=== PATIENT | female | born 1970 | race Caucasian/White ===

== ENCOUNTER 2021-03-27 10:39 | Day surgery (SDC) | payer OTHER, SELFPAY ==
--- NOTE | 2021-03-26 09:13 | HO.ANESPROP2 ---
HPI - Anesthesia Eval Consult details Narrative: 50yo F for Colonoscopy PMFSH Past Medical History Medical History Anxiety Breast cancer Seasonal allergies Surgical History Surgical History H/O mastectomy (~2019) Social History Social History Patient Tobacco Use Status: Former Tobacco user Use of substances other than those prescribed or required for medical reasons: No Advance Directives: No Advance Directives Information Provided: Yes Meds Allergies Allergy/AdvReac Type Severity Reaction Status Date / Time Seasonal Allergies Allergy Severe Itching Verified 03/27/21 10:45 Sulfa (Sulfonamide Allergy Severe Hives Verified 03/27/21 10:45 Antibiotics) trimethoprim Allergy Severe Hives Verified 03/27/21 10:45 Home Medications Medication Instructions Recorded Confirmed Last Taken Type sertraline 1 tab PO DAILY 03/26/21 03/26/21 Unknown History Exam Exam Date and Time: March 26, 2021 0913 Assessment and Plan Assessment Anesthesia Assessment: Chart Reviewed
[2021-03-27 10:46] VITALS: BP 150/88; PULSE 84; RESP 18; TEMP 36.7; O2SAT 99; BMI 27.4
[2021-03-27] MEDS: Lactated Ringers 1,000 ML 100 ML IVCONT (10:51)
--- NOTE | 2021-03-27 10:52 | MHC.SHP ---
Pre-Procedural Eval Section A Date of Service: 03/27/21 The patient is an INPATIENT: No Changes since office visit: No Cold of Flu in the past 2 weeks, No New Medical Problems, No Changes in Medication and No Patient answered all questions The History & Physical has been completed within 30 days and I have reviewed it.: Yes Section B Chief Complaint: screening Allergies: Allergies Allergy/AdvReac Type Severity Reaction Status Date / Time Seasonal Allergies Allergy Severe Itching Verified 03/27/21 10:45 Sulfa (Sulfonamide Allergy Severe Hives Verified 03/27/21 10:45 Antibiotics) trimethoprim Allergy Severe Hives Verified 03/27/21 10:45 Plan I have reviewed the history and physical and performed a pertinent physical examination on my patient. No changes have occurred unless specified.
--- NOTE | 2021-03-27 11:09 | HO.ANESPROP2 ---
[facility] Past Medical History Medical History Anxiety Breast cancer Seasonal allergies Surgical History Surgical History H/O mastectomy (~2019) Social History Social History Patient Tobacco Use Status: Former Tobacco user Use of substances other than those prescribed or required for medical reasons: No Advance Directives: No Advance Directives Information Provided: Yes Meds Allergies Allergy/AdvReac Type Severity Reaction Status Date / Time Seasonal Allergies Allergy Severe Itching Verified 03/27/21 10:45 Sulfa (Sulfonamide Allergy Severe Hives Verified 03/27/21 10:45 Antibiotics) trimethoprim Allergy Severe Hives Verified 03/27/21 10:45 Active Medications: Current Medications Generic Name Dose Route Start Last Admin Trade Name Freq PRN Reason Stop Dose Admin Lactated Ringer's 1,000 mls @ 100 mls/hr 03/27/21 10:45 03/27/21 10:51 Lr IVCONT 100 mls/hr .Q10H NAVARRO Administration Home Medications Medication Instructions Recorded Confirmed Last Taken Type sertraline 1 tab PO DAILY 03/26/21 03/26/21 Unknown History Exam Exam Date and Time: March 27, 2021 1109 Height,Weight and Vital Signs: Height 5 ft 6 in Weight 77.111 kg Last Vital Signs Temp 98.1 F 03/27/21 10:46 Pulse 84 03/27/21 10:46 Resp 18 03/27/21 10:46 BP 150/88 H 03/27/21 10:46 Pulse Ox 99 03/27/21 10:46 Airway Mallampati Class: II TM Dist: >3cm Neck ROM: Full Heart: RRR Lungs: CTA
[2021-03-27 11:30] VITALS: BP 110/66; PULSE 86; RESP 16; TEMP 36.6; O2SAT 99
--- NOTE | 2021-03-27 11:39 | PM.OP ---
Brief Operative Note Date of Service: 03/27/21 Pre-op diagnosis: screening Post-op diagnosis: same Procedure: colonoscopy Surgeon: Man Moya Anesthesia: MAC Was an Traffic Survey Technician used for this Procedure?: No Estimated blood loss (mL): 5 Pathology: other (see list) Condition: stable Disposition: PACU
[2021-03-27 11:45] VITALS: BP 115/73; PULSE 70; RESP 16; TEMP 36.6; O2SAT 100
--- NOTE | 2021-03-27 21:13 | OP_ITS ---
SURGEON: Man Moya MD INDICATIONS: Colon cancer screening. PREOPERATIVE DIAGNOSIS: POSTOPERATIVE DIAGNOSIS: PROCEDURE PERFORMED: Colonoscopy to the terminal ileum with snare polypectomy and biopsy. ESTIMATED BLOOD LOSS: COMPLICATIONS: ANESTHESIA: ASSISTANTS: SPECIMENS: MEDICATIONS: Monitored anesthesia care. DESCRIPTION OF PROCEDURE: History and physical performed. The risks and benefits of the procedure were explained to the patient. Informed consent was obtained. The patient was placed in the left lateral decubitus position. A digital rectal exam was performed and was found to be normal. The Olympus pediatric video colonoscope was introduced into the rectum and advanced to the cecum without difficulty. The cecum was identified by transillumination, palpation, and identification of ileocecal valve. Examination was performed and the scope was removed. She tolerated the procedure well and was taken to recovery area in stable condition. FINDINGS: The terminal ileum was normal. This was biopsied. In the cecum, were 3 polyps. The largest was sessile measuring approximately 10 mm. This was removed with a snare. Two less than 5 mm polyps were removed with biopsy forceps. The visualized colonic mucosa was normal without evidence of colitis or Crohn disease. Random biopsies were obtained from the sigmoid because of the patient's history of diarrhea. Retroflexed examination showed some hypertrophic anal papillae and small internal hemorrhoids. IMPRESSION: Colon polyps. RECOMMENDATION: Follow up the biopsy results. MD GUICHO Moyer/LUCIA / [id number]
== END 2021-03-27 12:06 | disposition home or self-care (01) ==
PROVIDERS: PCP Physician Assistant; Visit Provider Internal Medicine Gastroenterology
PROC: 0DJD8ZZ Inspection of Lower Intestinal Tract, Via Natural or Artificial Opening Endoscopic (ICD-10-PCS; CPT 45378; principal; 2021-03-27 11:30)
DX: Z12.11 Encounter for screening for malignant neoplasm of colon (principal); D12.0 Benign neoplasm of cecum; K62.89 Other specified diseases of anus and rectum; K64.8 Other hemorrhoids; F41.9 Anxiety disorder, unspecified; Z79.899 Other long term (current) drug therapy; Z85.3 Personal history of malignant neoplasm of breast; Z90.13 Acquired absence of bilateral breasts and nipples; Z88.2 Allergy status to sulfonamides; Z88.8 Allergy status to other drugs, medicaments and biological substances; Z87.891 Personal history of nicotine dependence
CPT/HCPCS: 45385; 45380; 88305

== ENCOUNTER 2024-04-20 09:45 | Day surgery (SDC) | payer OTHER, SELFPAY ==
--- NOTE | 2024-04-19 10:12 | HO.ANESPROP2 ---
Documented by User: Katelin Rinaldi NP 04/19/24 10:12 HPI - Anesthesia Eval Consult details Narrative: 53yo F for Upper Endoscopy and Colonoscopy s/p bilateral mastectomy PMFSH Past Medical History Medical History (Updated 04/20/24 @ 10:12 by Sneha Obrien RN) GERD (gastroesophageal reflux disease) Anxiety Breast cancer Seasonal allergies Surgical History Surgical History (Updated 04/20/24 @ 10:36 by Sneha Obrien RN) Hx of section H/O colonoscopy H/O mastectomy (~2019) Social History Social History Patient Tobacco Use Status: Former Tobacco user Use of substances other than those prescribed or required for medical reasons: No Are you DNR?: No Advance Directives: No Advance Directives Information Provided: Yes Meds Allergies Allergy/AdvReac Type Severity Reaction Status Date / Time Seasonal Allergies Allergy Severe Itching Verified 04/20/24 10:36 Home Medications ?Medication ?Instructions ?Recorded ?Confirmed ?Last Taken ?Type calcium-vitamin D3 04/19/24 04/19/24 Unknown History omeprazole 20 mg capsule,delayed 20 mg PO DAILY 04/19/24 04/19/24 Unknown History release cetirizine 10 mg tablet 10 mg PO DAILY 04/20/24 04/20/24 Unknown History fluticasone propionate 50 1 spray intranasal DAILY 04/20/24 04/20/24 Unknown History mcg/actuation nasal spray,suspension Assessment and Plan Assessment Anesthesia Assessment: Chart Reviewed Documented by User: Luis Brown MD 04/20/24 11:19 PMFSH Past Medical History Medical History (Updated 04/20/24 @ 10:12 by Sneha Obrien RN) GERD (gastroesophageal reflux disease) Anxiety Breast cancer Seasonal allergies Family History Family history of problems with anesthesia: No Surgical History Surgical History (Updated 04/20/24 @ 10:36 by Sneha Obrien RN) Hx of section H/O colonoscopy H/O mastectomy (~2019) History of Problems with Anesthesia: No Social History Social History Patient Tobacco Use Status: Former Tobacco user Use of substances other than those prescribed or required for medical reasons: No Are you DNR?: No Advance Directives: No Advance Directives Information Provided: Yes Meds Allergies Allergy/AdvReac Type Severity Reaction Status Date / Time Seasonal Allergies Allergy Severe Itching Verified 04/20/24 10:36 Home Medications ?Medication ?Instructions ?Recorded ?Confirmed ?Last Taken ?Type calcium-vitamin D3 04/19/24 04/19/24 Unknown History omeprazole 20 mg capsule,delayed 20 mg PO DAILY 04/19/24 04/19/24 Unknown History release cetirizine 10 mg tablet 10 mg PO DAILY 04/20/24 04/20/24 Unknown History fluticasone propionate 50 1 spray intranasal DAILY 04/20/24 04/20/24 Unknown History mcg/actuation nasal spray,suspension Exam Airway Mallampati Class: I TM Dist: >3cm Neck ROM: Full Loose/Missing/Broken Teeth: No Heart: ok Lungs: ok Assessment and Plan Assessment Anesthesia Assessment: Anesthesia Plan Discussed Final Anesthetic Review Family History of Problems with Anesthesia: No History of Problems with Anesthesia: No NPO: Yes ASA Class: II Final Preanesthetic Review: No Changes in Pt Med Stat, Meds/Allgs Chart Reviewed, Consent Obtained/Reviewed and Anes Risks/Benef Reviewed Patient Risk: Low Procedure Risk: Intermediate Anesthetic Plan Anesthetic Plan: Agree w/ Assess. and Plan and TIVA Disposition: Standard PACU
--- NOTE | 2024-04-20 09:58 | MHC.SHP ---
Pre-Procedural Eval Section A - 24 Hr Update-Section A only Date of Service: 04/20/24 The patient is an INPATIENT: No Changes since office visit: No Cold of Flu in the past 2 weeks, No New Medical Problems, No Changes in Medication and No Patient answered all questions The patient has been examined within 24 hours of the surgical procedure. The History & Physical has been completed within 30 days and I have reviewed it.: Yes Section B - Complete if H&P > 30 days Chief Complaint: gerd,screening Allergies: Allergies Allergy/AdvReac Type Severity Reaction Status Date / Time Seasonal Allergies Allergy Severe Itching Verified 03/27/21 10:45 Sulfa (Sulfonamide Allergy Severe Hives Verified 03/27/21 10:45 Antibiotics) trimethoprim Allergy Severe Hives Verified 03/27/21 10:45 Plan I have reviewed the history and physical and performed a pertinent physical examination on my patient. No changes have occurred unless specified. Time Spent With Patient Time: Total time managing care of this patient today ____ minutes.
[2024-04-20 10:13] VITALS: BMI 26.1
[2024-04-20 10:23] VITALS: BP 135/88; PULSE 77; RESP 15; TEMP 36.5; O2SAT 100
[2024-04-20] MEDS: Lactated Ringers 1,000 ML 100 ML IVCONT (10:34)
[2024-04-20 11:58] VITALS: BP 124/88; PULSE 107; RESP 18; TEMP 36.9; O2SAT 97
[2024-04-20 12:03] VITALS: BP 132/79; PULSE 85; RESP 18; O2SAT 99
--- NOTE | 2024-04-20 12:06 | OP_ITS ---
DATE OF SERVICE: 04/20/2024 SURGEON: Man Moya MD INDICATIONS: Colon cancer screening and gastroesophageal reflux disease. PREOPERATIVE DIAGNOSIS: POSTOPERATIVE DIAGNOSIS: PROCEDURE PERFORMED: Upper endoscopy with biopsy, colonoscopy to the terminal ileum with biopsy. ESTIMATED BLOOD LOSS: COMPLICATIONS: ANESTHESIA: Monitored anesthesia care. ASSISTANTS: SPECIMENS: DESCRIPTION OF PROCEDURE: A history and physical was performed. The risks and benefits of the procedure were explained to the patient and informed consent was obtained. The patient was placed in the left lateral decubitus position. The Olympus video gastroscope was introduced into the esophagus, stomach, and duodenum. Examination was performed and the scope was removed. She was repositioned for colonoscopy. Digital rectal exam was performed and was found to be normal. The Olympus pediatric video colonoscope was introduced into the rectum and advanced to the cecum. The cecum was identified by transillumination, palpation, and identification of ileocecal valve. Examination was performed and the scope was removed. She tolerated both procedures well and was returned to recovery area in stable condition. FINDINGS: Upper endoscopy, esophagus: The esophagus was normal. There was no esophagitis. There was an irregular EG junction, which was biopsied. Stomach: The stomach showed no evidence of masses or ulcers. There were several small less than 5 mm polyps in the body and fundus consistent with fundic colon polyps. Two of these were biopsied and antral biopsies were obtained to evaluate for H pylori. Duodenum: The bulb and 2nd portion were normal. Colonoscopy: The terminal ileum was examined and appeared normal. The visualized colonic mucosa was normal. Three polyps all less than 5 mm were removed with biopsy forceps. These were located in the cecum and at 55 cm and 40 cm. No other polyps were identified. The quality of the prep was good. Retroflexed examination showed some small internal hemorrhoids. IMPRESSION: 1. Gastric polyps. 2. Gastroesophageal reflux disease. 3. Colon polyps. RECOMMENDATION: Follow up the biopsy results. MD GUICHO oMyer/LUCIA / [id number]
[2024-04-20 12:08] VITALS: BP 123/78; PULSE 91; RESP 18; O2SAT 99
[2024-04-20 12:13] VITALS: BP 123/78; PULSE 64; RESP 18; TEMP 36.7; O2SAT 99
== END 2024-04-20 12:28 | disposition home or self-care (01) ==
PROVIDERS: Visit Provider Internal Medicine Gastroenterology
PROC: (CPT 45380; principal; 2024-04-20 11:50)
DX: Z12.11 Encounter for screening for malignant neoplasm of colon (principal); Z86.010 Personal history of colon polyps; D12.0 Benign neoplasm of cecum; D12.5 Benign neoplasm of sigmoid colon; K64.8 Other hemorrhoids; K21.9 Gastro-esophageal reflux disease without esophagitis; K31.7 Polyp of stomach and duodenum; K22.70 Barrett's esophagus without dysplasia; K29.50 Unspecified chronic gastritis without bleeding; Z85.3 Personal history of malignant neoplasm of breast; Z15.01 Genetic susceptibility to malignant neoplasm of breast; Z90.13 Acquired absence of bilateral breasts and nipples; J30.2 Other seasonal allergic rhinitis; Z79.51 Long term (current) use of inhaled steroids; Z79.1 Long term (current) use of non-steroidal anti-inflammatories (NSAID); Z79.899 Other long term (current) drug therapy; Z87.891 Personal history of nicotine dependence
CPT/HCPCS: 45380; 43239; 88305; 88313; 88342; J2250; J2704